=== PATIENT | female | born 1985 ===

== ENCOUNTER 2021-05-22 08:56 | Day surgery (SDC) | payer OTHER | END 2021-05-22 16:20 | disposition home or self-care (01) | LOC: CIR.AMB 08:56 | PROVIDERS: ATTEND Obstetrics & Gynecology | DX: N84.0 Polyp of corpus uteri (principal) ==

== ENCOUNTER 2022-10-13 09:12 | Outpatient (CLI) | payer OTHER | END 2022-10-13 09:19 | disposition home or self-care (01) | LOC: RX STUDY 09:12 | PROVIDERS: ATTEND Specialist | DX: N88.3 Incompetence of cervix uteri (principal) ==